=== PATIENT | male | born 1995 | race African-American/Black ===

== ENCOUNTER 2016-12-09 19:38 | Emergency (ER) | payer BC, MEDICAID ==
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
[2016-12-09] MEDS ORDERED: ACETAMINOPHEN 325 MG TABLET PO ONE (21:33)
[2016-12-10 00:18] VITALS: BP 115/46
[2016-12-10] MEDS ORDERED: HYDROCODONE/ACETAMINOPHEN 5-325 MG 6 TAB/DSPK PO PRN (00:52)
[2016-12-10] MEDS ORDERED: ONDANSETRON 4 MG TAB.RAPDIS PO ONE (00:52)
[2016-12-10] MEDS ORDERED: BACITRACIN ZINC OINTMENT 15 GM TP ONE (00:53)
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
[2016-12-10] MEDS ORDERED: NAPROXEN 375 MG TABLET PO ONE (01:41)
== END 2016-12-10 01:51 | disposition home or self-care (01) ==
LOC: ER 19:38
DX: S00.01XA Abrasion of scalp, initial encounter (principal); S00.03XA Contusion of scalp, initial encounter; S09.90XA Unspecified injury of head, initial encounter; R51 Headache; Y09 Assault by unspecified means
CPT/HCPCS: 70450; 99284; J3490

== ENCOUNTER 2017-04-20 05:07 | Emergency (ER) | payer BC, MEDICAID ==
[2017-04-20 05:31] VITALS: BP 124/60
[2017-04-20] MEDS ORDERED: LIDOCAINE 1% INJ-PF (10 MG/ML) 30 ML SDV INJ ONE (05:40)
--- NOTE | 2017-04-20 05:41 | ER Document Report ---
ED Wound - General Chief Complaint: Laceration Stated Complaint: FINGER LACERATION Time Seen by Provider: 04/20/17 05:36 Notes: Patient is a 21-year-old male that comes emergency department for chief complaint of laceration to the left index finger. He states he tripped and he cut his finger on a sheet of metal. He is up-to-date on his tetanus within 5 years reportedly. He denies any other injuries. TRAVEL OUTSIDE OF THE [place] IN LAST 30 DAYS: No - Related Data Allergies/Adverse Reactions: hydrocodone Allergy (Verified 04/20/17 05:32) No Known Drug Allergies Allergy (Verified 04/18/12 09:43) Past Medical History - General Information source: Patient - Social History Smoking Status: Never Smoker Drug Abuse: None Lives with: Family Family History: Arthritis, CAD, CVA, DM, Hyperlipidemia, Hypertension, Malignancy Patient has suicidal ideation: No Patient has homicidal ideation: No - Past Medical History Cardiac Medical History: Denies: Hx Heart Attack, Hx Hypertension Pulmonary Medical History: Denies: Hx Asthma, Hx Bronchitis, Hx COPD, Hx Pneumonia Neurological Medical History: Denies: Hx Seizures Renal/ Medical History: Denies: Hx Peritoneal Dialysis Musculoskeltal Medical History: Denies Hx Arthritis, Reports Hx Musculoskeletal Deformity, Reports Hx Musculoskeletal Trauma Traumatic Medical History: Reports: Hx Fractures - right arm Past Surgical History: Reports: Hx Orthopedic Surgery - right shoulder - Immunizations Hx Diphtheria, Pertussis, Tetanus Vaccination: Yes Review of Systems - Review of Systems Constitutional: No symptoms reported EENT: No symptoms reported Cardiovascular: No symptoms reported Respiratory: No symptoms reported Gastrointestinal: No symptoms reported Genitourinary: No symptoms reported Male Genitourinary: No symptoms reported Musculoskeletal: See HPI Skin: See HPI Hematologic/Lymphatic: No symptoms reported Neurological/Psychological: No symptoms reported Physical Exam - Vital signs Vitals: Temp Pulse Resp BP Pulse Ox 97.2 F 75 18 124/60 100 04/20/17 05:27 04/20/17 05:27 04/20/17 05:27 04/20/17 05:27 04/20/17 05:27 Interpretation: Normal - General General appearance: Appears well, Alert - HEENT Head: Normocephalic, Atraumatic Eyes: Normal Pupils: PERRL - Respiratory Respiratory status: No respiratory distress Chest status: Nontender Breath sounds: Normal Chest palpation: Normal - Cardiovascular Rhythm: Regular Heart sounds: Normal auscultation Murmur: No - Abdominal Inspection: Normal Distension: No distension Bowel sounds: Normal Tenderness: Nontender Organomegaly: No organomegaly - Back Back: Normal, Nontender - Extremities General upper extremity: Other - There is a 2 cm flap laceration over the dorsal aspect of the left index finger, this extends just between the DIP and PIP joints. No evidence 3, normal capillary refill and sensation, range of motion intact General lower extremity: Normal inspection, Nontender, Normal strength, Normal temperature - Neurological Neuro grossly intact: Yes Cognition: Normal Orientation: AAOx4 [place] Coma Scale Eye Opening: Spontaneous [place] Coma Scale Verbal: Oriented Renee Coma Scale Motor: Obeys Commands [place] Coma Scale Total: 15 Speech: Normal Motor strength normal: LUE, RUE, LLE, RLE Sensory: Normal - Psychological Associated symptoms: Normal affect, Normal mood - Skin Skin Temperature: Warm Skin Moisture: Dry Skin Color: Normal Course - Re-evaluation Re-evalutation: Superficial flap laceration over the dorsal left index finger. No evidence of tendon injury, normal neurovascular exam and range of motion is intact. Wound repaired after cleansing thoroughly and irrigation, discussed wound care, follow -up, return precautions. Patient states understanding and agreement. - Vital Signs Vital signs: Temp Pulse Resp BP Pulse Ox 97.2 F 75 18 124/60 100 04/20/17 05:27 04/20/17 05:27 04/20/17 05:27 04/20/17 05:27 04/20/17 05:27 Procedures - Laceration/Wound Repair Left index finger Wound length (cm): 2 Wound's Depth, Shape: Irregular, Flap Laceration pre-procedure: Sterile PPE donned, Sterile drapes applied, Shur- Clens applied Anesthetic type: 1% Lidocaine Volume Anesthetic (mLs): 3 Wound explored: Clean, No foreign body removed Irrigated w/ Saline (mLs): 40 Wound Debrided: Minimal Wound Repaired With: Sutures Suture Size/Type: 5:0, Nylon Number of Sutures: 6 Post-procedure wound care: Sterile dressing applied Post-procedure NV exam normal: Yes Complications: No Discharge - Discharge Clinical Impression: Finger laceration Qualifiers: Encounter type: initial encounter Finger: index finger Damage to nail status: without damage Foreign body presence: without foreign body Laterality: left Qualified Code(s): S61.211A - Laceration without foreign body of left index finger without damage to nail, initial encounter Condition: Stable Disposition: HOME, SELF-CARE Additional Instructions: Sutures need to come out in about 7 days. Keep wound clean, clean gently with soap and water, dab dry, avoid soaking, keep thin film of topical antibiotic over the area and a clean dressing. Return to emergency department immediately for any concerning symptoms including redness, swelling, discolored drainage, fever, or any other concerning symptoms. Forms: Return to Work
[2017-04-20] MEDS ORDERED: OXYCODONE-ACETAMINOPHEN 5-325 MG TABLET PO ONE (06:23)
== END 2017-04-20 06:45 | disposition home or self-care (01) ==
LOC: ER 05:07
PROC: 0HQGXZZ Repair Left Hand Skin, External Approach (ICD-10-PCS; principal; 2017-04-20)
DX: S61.211A Laceration without foreign body of left index finger without damage to nail, initial encounter (principal); W45.8XXA Other foreign body or object entering through skin, initial encounter
CPT/HCPCS: 99282

== ENCOUNTER → 2017-04-29 | Outpatient (CLI) | payer MEDICAID ==
[2017-04-29 19:51] LABS: CHLAM PCR NOT DETECTED (NOT DETECT)
== END ==
LOC: LAB 18:12
PROVIDERS: ATTEND Nurse Practitioner Acute Care
DX: Z20.2 Contact with and (suspected) exposure to infections with a predominantly sexual mode of transmission (principal)
CPT/HCPCS: 87491; 87591

== ENCOUNTER 2017-07-11 21:06 | Emergency (ER) | payer OTHER, MEDICAID ==
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
[2017-07-11] MEDS ORDERED: CYCLOBENZAPRINE HCL 10 MG TABLET PO ONE (23:01)
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
[2017-07-11 23:13] VITALS: BP 115/57
== END 2017-07-11 23:14 | disposition home or self-care (01) ==
LOC: ER 21:06
DX: M54.2 Cervicalgia (principal); V89.2XXA Person injured in unspecified motor-vehicle accident, traffic, initial encounter
CPT/HCPCS: 99283; 72050; L0120

== ENCOUNTER 2018-06-01 08:28 | Emergency (ER) | payer SELFPAY ==
[2018-06-01 08:33] VITALS: BP 115/58
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
== END 2018-06-01 10:21 | disposition home or self-care (01) ==
LOC: ER 08:28
DX: S01.511A Laceration without foreign body of lip, initial encounter (principal); S00.83XA Contusion of other part of head, initial encounter; W17.89XA Other fall from one level to another, initial encounter; F17.210 Nicotine dependence, cigarettes, uncomplicated
CPT/HCPCS: 99283; 99406